=== PATIENT | male | born 1975 ===

== ENCOUNTER 2017-06-26 06:09 | Emergency (ER) | payer SELFPAY ==
[2017-06-26 06:23] VITALS: RESP 18; TEMP 98; O2SAT 100
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
[2017-06-26 08:01] VITALS: BP 134/77; PULSE 72
== END 2017-06-26 07:59 | disposition home or self-care (01) ==
LOC: H.ER 06:09 → EDBD 06:09 → H.ER 07:59
DX: S09.90XA Unspecified injury of head, initial encounter (principal); V03.10XA Pedestrian on foot injured in collision with car, pick-up truck or van in traffic accident, initial encounter; Y92.410 Unspecified street and highway as the place of occurrence of the external cause